=== PATIENT | female | born 1965 | race Caucasian/White ===

== ENCOUNTER 2017-10-04 12:44 | Emergency (ER) | payer OTHER ==
--- NOTE | 2017-10-04 13:17 | CPEKG ---
Heart Rate: 54 RR Interval: 1111 P-R Interval: 144 QRSD Interval: 88 QT Interval: 420 QTC Interval: 398 P [place]: 42 QRS [place]: -2 T Wave [place]: 19 EKG Severity - BORDERLINE ECG - EKG Impression: SINUS RHYTHM EKG Impression: BORDERLINE T ABNORMALITIES, ANTERIOR LEADS Electronically Signed By: Derrell Chandra 04-Oct-2017 13:37:53
--- NOTE | 2017-10-04 13:24 | EDPHY ---
H & P Time Seen by Provider: 10/04/17 13:24 HPI/ROS: CHIEF COMPLAINT: Dizziness HISTORY OF PRESENT ILLNESS: The patient was doing well in her usual state of good health when she developed symptoms at 10:30 a.m. At work. Sudden onset of dizziness with the room spinning and movement even when remaining still associated with nausea and vomiting. Worse with movement or turning her head or being upright, better with lying down closing her eyes and being still. Not associated with neck pain or trouble speaking or weakness or numbness in extremities. No recent injury or trauma. No syncope or palpitations. REVIEW OF SYSTEMS: Eye: no change in vision or double vision ENT: no sore throat Cardiac: no chest pain or syncope Pulmonary: no cough or SOB Abdomen: No abdominal pain Musculoskeletal: No neck pain Skin: no rash Neuro: Very mild headache but only 1/10. Constitutional: no fever : no urinary symptoms A comprehensive 10 point review of systems is otherwise negative aside from elements mentioned in the history of present illness. PAST MEDICAL HISTORY: Cholecystectomy Social history: here with General Appearance: Alert and conversant, cooperative. Eyes: No scleral icterus. ENT, Mouth: Normal mucous membranes. Tympanic membranes normal bilaterally. Respiratory: Normal respiratory effort, breath sounds equal, lungs are clear to auscultation. Cardiovascular: Regular rate and rhythm. Gastrointestinal: Abdomen is soft and non tender. Neurological: Alert, face symmetric, normal motor and sensory in extremities. Normal raglow-sy-zjuz bilaterally, normal heel to [place]tega, no clonus, fluent speech. No pronator drift. Skin: Warm and dry, no rashes. Musculoskeletal: No peripheral edema. Psychiatric: Not agitated. Emergency Department course/MDM: Classic presentation for benign peripheral vertigo, will treat with Zofran and meclizine and IV fluids. I think it is unlikely she has vertebral dissection or ischemic process or cerebellar infarct or cardiac dysrhythmia. 1500: Ambulatory, stable enough for discharge, warned symptoms may persist for couple of days, outpatient management seems reasonable at this time with Zofran and meclizine. Smoking Status: Never smoked Constitutional: Initial Vital Signs Temperature (C) 36.6 C 10/04/17 12:48 Heart Rate 62 10/04/17 12:48 Respiratory Rate 16 10/04/17 12:48 Blood Pressure 131/92 H 10/04/17 12:48 O2 Sat (%) 99 10/04/17 12:48 O2 Delivery Mode Room Air Allergies/Adverse Reactions: No Known Allergies Allergy (Unverified 10/04/17 12:47) Home Medications: Medication Instructions Recorded Fish Oil 1,000 mg Softgel 10/04/17 Levothyroxine 10/04/17 Meclizine HCl [Meclizine HCl 25 mg 25 mg PO Q6 PRN #20 tab 10/04/17 (RX,OTC)] Ondansetron Odt [Zofran Odt] 4 mg PO Q4PRN #6 tab 10/04/17 Medical Decision Making - Diagnostics EKG Interpretation: 12-lead EKG interpreted by me; official reading is in trace master. My interpretation is sinus rhythm rate 54 with no ischemic changes and normal intervals. Differential Diagnosis: Differential diagnosis considered for dizziness including but not limited to peripheral and central causes of vertigo, orthostatic causes including dehydration, and blood loss. - Data Points Medications Given: Discontinued Medications Sodium Chloride (Ns) 1,000 mls @ 0 mls/hr IV EDNOW ONE; Wide Open PRN Reason: Protocol Stop: 10/04/17 13:39 Last Admin: 10/04/17 13:51 Dose: 1,000 mls Meclizine HCl (Meclizine Hcl) 25 mg PO EDNOW ONE Stop: 10/04/17 13:39 Last Admin: 10/04/17 13:51 Dose: 25 mg Ondansetron HCl (Zofran) 4 mg IVP EDNOW ONE Stop: 10/04/17 13:39 Last Admin: 10/04/17 13:51 Dose: 4 mg Departure - Departure Disposition: Home, Routine, Self-Care Clinical Impression: Vertigo Condition: Good Instructions: Vertigo (ED) Referrals: Derrick Sauceda MD [Primary Care Provider] - As per Instructions Prescriptions: Meclizine HCl [Meclizine HCl 25 mg (RX,OTC)] 25 mg PO Q6 PRN #20 tab PRN Reason: Dizziness Ondansetron Odt [Zofran Odt] 4 mg PO Q4PRN #6 tab
[2017-10-04] MEDS ORDERED: ONDANSETRON 4 MG/2 ML VIAL IVP ONE (13:38)
[2017-10-04] MEDS ORDERED: MECLIZINE HCL 25 MG TAB PO ONE (13:38)
[2017-10-04] MEDS ORDERED: NS 1,000 ML IV ONE (13:38)
[2017-10-04 14:50] VITALS: BP 97/58
== END 2017-10-04 15:20 | disposition home or self-care (01) ==
DX: R42 Dizziness and giddiness (principal); E86.9 Volume depletion, unspecified
CPT/HCPCS: 96374; J2405